=== PATIENT | female | born 1970 ===

== ENCOUNTER 2019-01-01 23:34 | Inpatient (IN) | payer MEDICAID ==
[2019-01-02] MEDS ORDERED: Sodium Chloride 0.9% 1,000 ML IV ONE (00:17)
[2019-01-02] MEDS ORDERED: DiphenhydrAMINE 50 mg/ml Inj IVP STA (00:18)
--- NOTE | 2019-01-02 00:27 | C.PDOC ---
History Of Present Illness 48 year old female, whose past medical history includes anemia, fibroids, and hypertension, presents to the ED for evaluation of headache and flank pain that has worsened over the past two days. Patient also reports feeling dizzy and fatigued. She denies fever. Additional information limited secondary to patient being a poor historian. Time Seen by Provider: 01/02/19 00:02 Chief Complaint (Nursing): Headache History Per: Patient History/Exam Limitations: other (poor historian ) Onset/Duration Of Symptoms: Days (2) Current Symptoms Are (Timing): Worse Quality: Aching Additional History Per: Patient Past Medical History Reviewed: Historical Data, Nursing Documentation, Vital Signs Vital Signs: Last Vital Signs Temp 98.6 F 01/01/19 23:39 Pulse 87 01/01/19 23:39 Resp 22 01/01/19 23:39 BP 137/62 01/01/19 23:39 Pulse Ox 100 01/01/19 23:39 - Medical History PMH: No Chronic Diseases Denies: Chronic Kidney Disease Surgical History: No Surg Hx Family History: States: Unknown Family Hx - Social History Hx Alcohol Use: No Hx Substance Use: No - Immunization History Hx Tetanus Toxoid Vaccination: No Hx Influenza Vaccination: Yes Hx Pneumococcal Vaccination: No Review Of Systems Constitutional: Positive for: Other (fatigue). Negative for: Fever Musculoskeletal: Positive for: Other (flank pain ) Neurological: Positive for: Headache, Dizziness Physical Exam - Physical Exam Appears: Non-toxic, No Acute Distress, Other (morbidly obese ) Skin: Normal Color, Warm, Dry Head: Atraumatic, Normacephalic Eye(s): bilateral: Normal Inspection Oral Mucosa: Moist Neck: Supple Chest: Symmetrical, No Deformity, No Tenderness Cardiovascular: Rhythm Regular, No Murmur Respiratory: Normal Breath Sounds, No Rales, No Rhonchi, No Wheezing Gastrointestinal/Abdominal: Soft, No Tenderness Back: Other (left flank tenderness ) Extremity: Normal ROM, Capillary Refill (less than 2 seconds ) Neurological/Psych: Normal Speech, Normal Cognition ED Course And Treatment - Laboratory Results Result Diagrams: 01/02/19 00:40 01/02/19 00:40 O2 Sat by Pulse Oximetry: 100 (on RA ) Pulse Ox Interpretation: Normal - CT Scan/US CT Head Other Rad Studies (CT/US): Read By Radiologist, Radiology Report Reviewed CT/US Interpretation: CT SCAN OF THE BRAIN WITHOUT IV CONTRAST. CLINICAL INDICATION: Headache. TECHNIQUE: Axial images of the brain obtained without IV contrast administration. FINDINGS: Left temporal chronic encephalomalacia. Normal size of the ventricles and extra-axial spaces for the patient's age. Normal basal ganglia and thalami. Normal brainstem. Normal cerebellum. There is no demonstrated extra-axial, intraparenchymal, or intraventricular hemorrhage. There are no findings of an acute ischemic infarction. Normal calvarium. There is no demonstrated fracture. Normal soft tissue structures. Normal visualized paranasal sinuses. IMPRESSION: Left temporal chronic encephalomalacia. CT A/P Other Rad Studies (CT/US): Read By Radiologist, Radiology Report Reviewed CT/US Interpretation: CT SCAN OF THE ABDOMEN AND PELVIS WITHOUT ORAL OR IV CONTRAST. CLINICAL INDICATION: Abdominal pain. TECHNIQUE: Axial and reformatted sagittal and coronal images of the abdomen pelvis obtained without IV contrast administration. COMPARISON: None. FINDINGS: The visualized lung bases are unremarkable. Normal unenhanced liver. Normal gallbladder and extrahepatic biliary system. Normal unenhanced spleen. Normal pancreas. . Normal bilateral adrenal glands. Normal size of the right kidney. There is no right renal mass. There are no right renal calculi. There is no right hydronephrosis. Normal visualized right ureter. Normal size of the left kidney. There is no left renal mass. There are no left renal calculi. There is no left hydronephrosis. Normal visualized left ureter. Normal visualized stomach. Normal small intestine. Uncomplicated diverticulosis of the colon. The appendix is enlarged measuring 1.7 cm in its largest dimension. Mild surrounding inflammatory fat stranding. 2.3 cm left ovarian cyst. There is no demonstrated peritoneal fluid. Normal abdominal aorta. Normal inferior vena cava. Normal retroperitoneum. . Normal urinary bladder. There is no pelvic mass lesion or lymphadenopathy. There is no pelvic fluid. . Normal abdominal wall. Normal osseous structures. IMPRESSION: Uncomplicated acute appendicitis. Medical Decision Making Medical Decision Making: ro intracranial abodminal patholoyg Progress: Bloodwork, urinalysis, CT A/P, CT Head ordered and reviewed. Benadryl IVP, Reglan IVP and IV Fluids given. case discussed with dr garcia, accepts rehan noyola resident and stella hebert. accepted Disposition - Disposition Disposition: HOSPITALIZED Disposition Time: 20:45 Condition: STABLE - Clinical Impression Clinical Impression: Appendicitis - Scribe Statement The provider has reviewed the documentation as recorded by the Scribe (Hallie Garcia) Provider Attestation: All medical record entries made by the Scribe were at my direction and personally dictated by me. I have reviewed the chart and agree that the record a ccurately reflects my personal performance of the history, physical exam, medical decision making, and the department course for this patient. I have also personally directed, reviewed, and agree with the discharge instructions and disposition. Decision To Admit - Pt Status Changed To: Hospital Disposition Of: Inpatient - Admit Certification Admit to Inpatient:: After my assessment, the patient will require hospitalization for at least two midnights. This is because of the severity of symptoms shown, intensity of services needed, and/or the medical risk in this patient being treated as an outpatient. - InPatient: Physician Admission Certification: I certify that this patient requires 2 or more midnights of care for the following reason:: needs or - . Bed Request Type: Regular Admitting Physician: Laron Garcia Patient Diagnosis: Appendicitis
[2019-01-02] MEDS ORDERED: DiphenhydrAMINE 50 mg/ml Inj ONE (00:33)
[2019-01-02] MEDS ORDERED: Sodium Chloride 0.9% 1,000 ML ONE ×2 (00:34→06:56)
[2019-01-02 00:55] LABS: BASO % 0.3 % (0.0-2.0); EOS # 0.1 K/uL (0.0-0.7); EOS % 2.1 % (0.0-4.0); HEMOGLOBIN 11.5 g/dL (11.0-16.0); LYMPH # 0.7 K/uL (1.0-4.3); LYMPH % 14.9 % (20.0-40.0); MEAN CELL VOLUME 79.4 fL (81.0-99.0); MEAN CORPUSCULAR HEMOGLOBIN 25.3 pg (27.0-31.0); MEAN CORPUSCULAR HGB CONC 31.9 g/dL (33.0-37.0); MEAN PLATELET VOLUME 8.4 fL (7.2-11.7); MONO % 0.8 % (0.0-10.0); NEUT # 3.9 K/uL (1.8-7.0); NEUT % 81.9 % (50.0-75.0); NRBC % 0.3 % (0.0-2.0); RBC 4.53 Mil/uL (3.80-5.20); WHITE BLOOD COUNT 4.8 K/uL (4.8-10.8)
[2019-01-02 01:03] LABS: INR 1.3; PROTHROMBIN TIME 14.5 SECONDS (9.7-12.2)
[2019-01-02 01:07] LABS: ALB/GLOB RATIO 1.1 (1.0-2.1); ALBUMIN 4.1 g/dL (3.5-5.0); ALT/SGPT 10 U/L (9-52); AST/SGOT 21 U/L (14-36); BLOOD UREA NITROGEN 16 mg/dL (7-17); GFR NON-AFRICAN AMERICAN > 60; LIPASE 224 U/L (23-300)
[2019-01-02 01:48] LABS: HCG,QUALITATIVE URINE NEGATIVE (NEGATIVE)
[2019-01-02 01:50] LABS: SQUAMOUS EPITHIAL 2 /hpf (0-5); URINE BILIRUBIN NEGATIVE (NEGATIVE); URINE BLOOD 3+ (NEGATIVE); URINE CLARITY Hazy (Clear); URINE COLOR Yellow (YELLOW); URINE GLUCOSE (UA) NORMAL (Normal); URINE LEUKOCYTE ESTERASE NEG Leu/uL (Negative); URINE PROTEIN NEGATIVE (NEGATIVE); URINE UROBILINOGEN NORMAL mg/dL (0.2-1.0)
[2019-01-02] MEDS ORDERED: Piperacillin/Tazobact 3.375 gm 100 ML IVPB STA (03:29)
[2019-01-02] MEDS ORDERED: Piperacillin/Tazobact 3.375 gm 100 ML IVPB ONE (04:00)
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
[2019-01-02] MEDS ORDERED: Piperacill/Tazo 3.375gm in Dex 3.375 GM/50 ML BAG IVPB SCH (06:45)
[2019-01-02] MEDS: Sodium Chloride 0.9% 1,000 ML IV SCH ×2 (06:57→21:14)
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
--- NOTE | 2019-01-02 09:35 | CT ---
Date of service: 01/02/2019 PROCEDURE: CT HEAD WITHOUT CONTRAST. HISTORY: Headache COMPARISON: None available. TECHNIQUE: Axial computed tomography images were obtained through the head/brain without intravenous contrast. Radiation dose: Total exam DLP = 911.42 mGy-cm. This CT exam was performed using one or more of the following dose reduction techniques: Automated exposure control, adjustment of the mA and/or kV according to patient size, and/or use of iterative reconstruction technique. FINDINGS: HEMORRHAGE: No acute parenchymal, subarachnoid nor extra-axial hemorrhage. The BRAIN: Partially cystic encephalomalaciac changes seen involving left temporal lobe extending superiorly into the left posterior temporoparietal watershed zone. Clinical correlation with history is recommended.. There is slight ex vacuo dilatation of the left temporal horn and left atrium. Mild vascular calcifications both vertebral arteries. VENTRICLES: No obstructive hydrocephalus CALVARIUM: Calvarium intact. PARANASAL SINUSES: Unremarkable as visualized. No significant inflammatory changes. MASTOID AIR CELLS: Unremarkable as visualized. No inflammatory changes. OTHER FINDINGS: None. IMPRESSION: Left temporal partially cystic encephalomalaciac changes extending superiorly into the left posterior temporoparietal watershed zone with slight ex vacuo dilatation of the left temporal horn and left atrium. Clinical correlation with history recommended. No acute intracranial hemorrhage.
[2019-01-02] MEDS: Piperacill/Tazo 3.375gm in Dex 3.375 GM/50 ML BAG IVPB SCH ×3 (10:49→21:15)
--- NOTE | 2019-01-02 11:04 | CT ---
Date of service: 01/02/2019 PROCEDURE: CT Abdomen and Pelvis without intravenous contrast HISTORY: Abdominal pain. COMPARISON: None. TECHNIQUE: Technique. Contrast dose: Radiation dose: Total exam DLP = 915.61 mGy-cm. This CT exam was performed using one or more of the following dose reduction techniques: Automated exposure control, adjustment of the mA and/or kV according to patient size, and/or use of iterative reconstruction technique. FINDINGS: LOWER THORAX: Side in range of normal. No significant pericardial effusion. Minimal atelectasis and/or scarring left lingular region. LIVER: Unremarkable. No gross lesion or ductal dilatation. GALLBLADDER AND BILE DUCTS: Unremarkable. PANCREAS: Unremarkable. No gross lesion or ductal dilatation. SPLEEN: Unremarkable. ADRENALS: Unremarkable. No mass. KIDNEYS AND URETERS: Unremarkable. No hydronephrosis. No solid mass. VASCULATURE: Unremarkable. No aortic aneurysm. No aortic atherosclerotic calcification or mural plaque present. BOWEL: Evaluation of bowel slightly limited due to opacification lack of oral contrast material. The stomach is incompletely distended. Visualized loops of small bowel exhibit normal contour caliber. No evidence of acute mechanical small bowel obstruction. Moderate amount of stool seen within the distal ileum cecum and proximal ascending colon. Most the remaining colon relatively either air-filled or collapsed. Few scattered colonic diverticula are present however no radiographic evidence. APPENDIX: The appendix is dilated and thick walled with mild surrounding infiltration changes in the adjacent periappendiceal mesenteric. Findings are consistent with acute appendicitis. PERITONEUM: Unremarkable. No free fluid. No free air. There is slight dehiscence of the mid anterior abdominal wall above the level of the umbilicus with a small fat containing umbilical hernia. LYMPH NODES: Unremarkable. No enlarged lymph nodes. BLADDER: The urinary bladder is incompletely distended with thick-walled appearance. Correlation with urinalysis. REPRODUCTIVE: 2.5 mm left adnexal cyst BONES: Minor multilevel degenerative spondylosis of the thoracic and lumbar spine. Old healed right posterolateral 7th rib fracture deformity. OTHER FINDINGS: None. IMPRESSION: Findings consistent with acute appendicitis. Fecalized content seen within the distal ileum suggesting fecal stasis. Few scattered colonic diverticula without radiographic evidence of diverticulitis. 2.5 mm left adnexal cyst There is bladder wall thickening likely due to incomplete distention and muscular hypertrophy however correlation with urinalysis recommended to exclude cystitis
[2019-01-02] MEDS ORDERED: Propofol 10 mg/ml Inj (20 ML) ONE ×3 (16:39→18:21)
[2019-01-02] MEDS ORDERED: Midazolam 2 MG/2 ML VIAL ONE ×2 (16:39→18:21)
[2019-01-02] MEDS ORDERED: Succinylcholine Chloride 20 mg/ml Syr (5 ml) IV ONE ×2 (16:55→18:20)
[2019-01-02] MEDS ORDERED: Rocuronium 10 mg/ml (5 ml) ONE ×2 (16:55→18:20)
[2019-01-02] MEDS ORDERED: Neostigmine 1:1000 (1 mg/ml) Inj ONE ×2 (17:34→19:13)
[2019-01-02] MEDS ORDERED: Bupivacaine 0.25% 20 ML INJ IJ ONE (18:17)
[2019-01-02] MEDS ORDERED: Lidocaine/Epinephrine 1% 1:100000 10 ML IJ ONE (18:17)
[2019-01-02] MEDS ORDERED: HYDROmorphone 0.5 mg/0.5 ml ISec IVP PRN (19:43)
--- NOTE | 2019-01-02 19:48 | PCM.SURG1 ---
Surgeon's Initial Post Op Note - Surgeon's Notes Surgeon: Dr. Mathews Top Lift Compresser: Wesley PGY2 Type of Anesthesia: General Endo, Local Anesthesia Administered By: Dr. Palafox Pre-Operative Diagnosis: Acute appendicitis Operative Findings: Acute appendicitis, fecalith vs intraluminal mass Post-Operative Diagnosis: Acute appendicitis Operation Performed: Laparoscopic appendectomy Specimen/Specimens Removed: Appendix Estimated Blood Loss: EBL {In ML}: 10 Blood Products Given: N/A Drains Used: No Drains Post-Op Condition: Good Date of Surgery/Procedure: 01/02/19 Time of Surgery/Procedure: 19:48
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
[2019-01-03] MEDS: Sodium Chloride 0.9% 1,000 ML IV SCH ×2 (03:01→07:05)
[2019-01-03] MEDS: Piperacill/Tazo 3.375gm in Dex 3.375 GM/50 ML BAG IVPB SCH ×2 (04:56→09:58)
--- NOTE | 2019-01-03 05:10 | OP ---
PROCEDURE DATE: 01/02/2019 PREOPERATIVE DIAGNOSES: 1. Acute appendicitis. 2. Abdominal pain. POSTOPERATIVE DIAGNOSES: 1. Acute appendicitis with appendicolith at the base of the appendix. 2. Pelvic purulent collection. PROCEDURE PERFORMED: 1. Laparoscopic appendectomy. 2. Laparoscopic partial cecectomy. 3. Laparoscopic drainage of pelvic purulent collection. SURGEON: Michael Mathews MD MAINTENANCE TEAM LEADER: Miki Olson, PGY-3 resident. TYPE OF ANESTHESIA: General endotracheal tube anesthesia. ESTIMATED BLOOD LOSS: Around 10 mL. DRAINS: None. PATHOLOGY: Appendix with a part of cecum was sent to the Pathology. COMPLICATIONS: None. INTRAOPERATIVE FINDINGS: The patient had extremely thickened large appendicolith at the base of the appendix and the partial cecectomy was done in order to include large appendicolith at the base of the appendix. DESCRIPTION OF PROCEDURE: On intraoperative steps, this 48-year-old female was diagnosed with acute appendicitis and the patient was consented for laparoscopic appendectomy, possible open. Brought to the OR and placed supine on the operating table. After induction of the anesthesia, the abdomen was prepped and draped in the usual sterile fashion. A supraumbilical incision was made using open technique. Peritoneal cavity was entered. Pneumo was created. Another 2.8 mm port was placed in suprapubic and left lower quadrant. The grasper and dissector was introduced. The appendix was identified. The appendix was released from the lateral attachment and the patient was found to have a large appendicolith at the base of the appendix, and mesoappendix was resected with Harmonic scalpel and the base of the appendix was resected with JIM with the part of the cecum to include the appendicolith and the base of the appendix. The fat wall between the appendix and ileum was resected in order to avoid the ileocecal junctional injury and after cecectomy, the specimen was taken in an EndoCatch bag, taken out through the umbilical port site and sent off the table for the pathology. There was proper hemostasis in each and every part of the procedure. All the staple line was viable and now the pelvis was explored. The patient was found to have purulent pelvic collection that was drained and suction irrigation of the pelvic periappendicular as well as the perihepatic area was done and all the fluid was suctioned out and after that, all the port was taken out under vision. Pneumo was deflated. Umbilical port site was closed in two layers, the fascia with 0 Vicryl interrupted sutures, skin with 4-0 Monocryl, and dry sterile dressing was applied. The patient tolerated procedure well. Count of instrument and gauze was correct. There was no apparent complication. The patient was extubated in OR, sent to the postanesthesia care unit in stable condition. Michael Mathews MD
[2019-01-03 07:02] VITALS: RESP 18
--- NOTE | 2019-01-03 07:02 | CP.PCM.PN ---
Subjective - Date & Time of Evaluation Date of Evaluation: 01/03/19 Time of Evaluation: 07:01 - Subjective Subjective: Medicine Progress Note - Dr Naila Hogue's service Patient seen and examined at bedside. Per nursing no acute events overnight. Patient is s/p laparoscopic appendectomy POD#1. Patient is ambulating and tolerating diet. She reports having gas pain, passing some flatus and had a bowel movement. Offers no other complaints at this time. Objective - Vital Signs/Intake and Output Vital Signs (last 24 hours): Temp Pulse Resp BP Pulse Ox 98.4 F 76 20 102/53 L 98 01/02/19 23:48 01/02/19 23:48 01/02/19 23:48 01/02/19 23:48 01/02/19 23:48 Intake and Output: 01/03/19 01/03/19 06:59 18:59 Intake Total 300 Balance 300 - Medications Medications: Current Medications Sodium Chloride (Sodium Chloride 0.9%) 1,000 mls @ 100 mls/hr IV .Q10H ANISHA Last Admin: 01/03/19 03:01 Dose: Not Given Piperacillin Sod/Tazobactam Sod (Zosyn 3.375 Gm Iv Premix) 3.375 gm in 50 mls @ 100 mls/hr IVPB Q6H ANISHA; Protocol Last Admin: 01/03/19 04:56 Dose: 100 mls/hr Ketorolac Tromethamine (Toradol) 30 mg IVP Q6 PRN PRN Reason: Headache Last Admin: 01/02/19 16:47 Dose: 30 mg Morphine Sulfate (Morphine) 2 mg IVP Q4H PRN PRN Reason: Pain, moderate (4-7) Last Admin: 01/02/19 12:04 Dose: 2 mg Pneumococcal Polyvalent Vaccine (Pneumovax 23 Vaccine) 0.5 ml IM .ONCE ONE Stop: 01/04/19 10:01 - Labs Labs: 01/02/19 00:40 01/02/19 00:40 PT 14.5 SECONDS (9.7-12.2) H 01/02/19 00:40 INR 1.3 01/02/19 00:40 APTT 30 SECONDS (21-34) 01/02/19 00:40 - Constitutional Appears: Non-toxic, No Acute Distress - Head Exam Head Exam: ATRAUMATIC, NORMAL INSPECTION, NORMOCEPHALIC - Eye Exam Eye Exam: EOMI, Normal appearance - ENT Exam ENT Exam: Mucous Membranes Moist - Neck Exam Neck Exam: Full ROM - Respiratory Exam Respiratory Exam: Clear to Ausculation Bilateral, NORMAL BREATHING PATTERN. absent: Rales, Rhonchi, Wheezes - Cardiovascular Exam Cardiovascular Exam: REGULAR RHYTHM, +S1, +S2 - GI/Abdominal Exam GI & Abdominal Exam: Distended, Soft, Tenderness (Mild tenderness ). absent: Guarding, Rigid - Extremities Exam Extremities Exam: Normal Inspection. absent: Calf Tenderness Additional comments: +SCDs - Neurological Exam Neurological Exam: Alert, Awake, Oriented x3 Assessment and Plan - Assessment and Plan (Free Text) Assessment: Acute appendicitis -Stable, aferile -S/P laparoscopic appendectomy POD#1 -Encourage ambulation and hydration -Encourage ISS use -General surgery on consult, help appreciated -Per surgery patient is cleared for discharge home DISPO: Will D/C home today. Patient to follow up with surgery within 1 week. Plan discussed with Dr Naila Navas DO PGY-2
[2019-01-03 08:13] VITALS: BP 108/57; PULSE 67; TEMP 98; O2SAT 98
[2019-01-03 11:50] LABS: BASO % 0.5 % (0.0-2.0); EOS # 0.1 K/uL (0.0-0.7); EOS % 1.3 % (0.0-4.0); HEMOGLOBIN 10.3 g/dL (11.0-16.0); LYMPH % 14.2 % (20.0-40.0); MEAN CELL VOLUME 79.9 fL (81.0-99.0); MEAN CORPUSCULAR HEMOGLOBIN 24.4 pg (27.0-31.0); MEAN CORPUSCULAR HGB CONC 30.6 g/dL (33.0-37.0); MEAN PLATELET VOLUME 8.4 fL (7.2-11.7); MONO # 0.5 K/uL (0.0-0.8); MONO % 7.2 % (0.0-10.0); NEUT # 5.3 K/uL (1.8-7.0); NEUT % 76.8 % (50.0-75.0); RBC 4.22 Mil/uL (3.80-5.20); RED CELL DISTRIBUTION WIDTH 20.6 % (11.5-14.5); WHITE BLOOD COUNT 6.9 K/uL (4.8-10.8)
[2019-01-03 12:07] LABS: ALB/GLOB RATIO 0.9 (1.0-2.1); ALBUMIN 3.1 g/dL (3.5-5.0); CALCIUM 8.2 mg/dl (8.6-10.4)
--- NOTE | 2019-01-03 12:51 | CP.PCM.PN ---
Subjective - Date & Time of Evaluation Date of Evaluation: 01/03/19 Time of Evaluation: 12:48 - Subjective Subjective: Surgical Progress Note for Dr. Mathews Patient seen and examined at bedside. Patient states she feels better than before. She had a small bowel movement this morning. She was able to tolerate her breakfast without nausea or vomiting. She denies fevers, chills, chest pain, shortness of breath, dysuria, leg pain or swelling. Objective - Vital Signs/Intake and Output Vital Signs (last 24 hours): Temp Pulse Resp BP Pulse Ox 98.0 F 67 18 108/57 L 98 01/03/19 07:00 01/03/19 07:00 01/03/19 07:00 01/03/19 07:00 01/03/19 07:00 Intake and Output: 01/03/19 01/03/19 06:59 18:59 Intake Total 300 Balance 300 - Medications Medications: Current Medications Sodium Chloride (Sodium Chloride 0.9%) 1,000 mls @ 100 mls/hr IV .Q10H ANISHA Last Admin: 01/03/19 07:05 Dose: 100 mls/hr Piperacillin Sod/Tazobactam Sod (Zosyn 3.375 Gm Iv Premix) 3.375 gm in 50 mls @ 100 mls/hr IVPB Q6H ANISHA; Protocol Last Admin: 01/03/19 09:58 Dose: 100 mls/hr Ketorolac Tromethamine (Toradol) 30 mg IVP Q6 PRN PRN Reason: Headache Last Admin: 01/02/19 16:47 Dose: 30 mg Morphine Sulfate (Morphine) 2 mg IVP Q4H PRN PRN Reason: Pain, moderate (4-7) Last Admin: 01/02/19 12:04 Dose: 2 mg Pneumococcal Polyvalent Vaccine (Pneumovax 23 Vaccine) 0.5 ml IM .ONCE ONE Stop: 01/03/19 13:01 - Labs Labs: 01/03/19 11:33 01/03/19 11:33 PT 14.5 SECONDS (9.7-12.2) H 01/02/19 00:40 INR 1.3 01/02/19 00:40 APTT 30 SECONDS (21-34) 01/02/19 00:40 - Constitutional Appears: Well, No Acute Distress - Head Exam Head Exam: ATRAUMATIC, NORMOCEPHALIC - Eye Exam Eye Exam: EOMI, PERRL - ENT Exam ENT Exam: Mucous Membranes Moist - Neck Exam Neck Exam: Full ROM - Respiratory Exam Respiratory Exam: NORMAL BREATHING PATTERN - Cardiovascular Exam Cardiovascular Exam: REGULAR RHYTHM, +S1, +S2 - GI/Abdominal Exam GI & Abdominal Exam: Soft, Normal Bowel Sounds. absent: Distended Additional comments: Dressings clean, dry, intact - Extremities Exam Extremities Exam: absent: Calf Tenderness, Pedal Edema Additional comments: SCDs in place. - Neurological Exam Neurological Exam: Alert, Awake, Oriented x3 Neuro motor strength exam: Left Upper Extremity: 0 - Skin Skin Exam: Dry, Intact, Warm Assessment and Plan - Assessment and Plan (Free Text) Assessment: 48 year female POD 1 lap appendectomy Plan: Patient cleared for discharge from surgical point of view Follow up with Dr. Mathews in 1 week. May take Tylenol and Motrin for pain Patient may shower Avoid lifting over 10 lbs for the next 4 weeks Follow up path report as outpatient Chris Benton, PGY1
[2019-01-03] MEDS ORDERED: Pneumococcal 23-Valent Vaccine IM ONE (13:00)
[2019-01-04] MEDS ORDERED: Pneumococcal 23-Valent Vaccine IM ONE (10:00)
== END 2019-01-03 14:22 | disposition home or self-care (01) | DRG 221 ==
LOC: C.ER 23:34 → C.9E 01-02 05:48 → C.5S 01-02 10:15
PROVIDERS: ADMIT Internal Medicine Nephrology; ATTEND Internal Medicine Nephrology
PROC: 0DBH4ZZ Excision of Cecum, Percutaneous Endoscopic Approach (ICD-10-PCS; 2019-01-02)
PROC: 0W9J4ZZ Drainage of Pelvic Cavity, Percutaneous Endoscopic Approach (ICD-10-PCS; 2019-01-02)
PROC: 0DTJ4ZZ Resection of Appendix, Percutaneous Endoscopic Approach (ICD-10-PCS; principal; 2019-01-02 12:15)
DX: K35.80 Unspecified acute appendicitis (principal); K38.1 Appendicular concretions; I10 Essential (primary) hypertension; D25.9 Leiomyoma of uterus, unspecified